=== PATIENT | male | born 1965 | race Caucasian/White ===

== ENCOUNTER → 2016-10-13 | Outpatient (CLI) | payer OTHER ==
[~2016-10-13] MED LIST: GABA-282 PO; MOBI15TA PO; PERC5TAB12 PO
--- NOTE | 2016-10-14 16:49 | HPE ---
DATE OF ADMISSION: 10/18/2016 CHIEF COMPLAINT: Neck pain, pain radiating down his right upper extremity. HISTORY: This is a pleasant 51-year-old male patient with ongoing neck pain and pain radiating to his right arm since around December of last year. There is no particular injury. Most of it was thought to be related to his shoulder. He underwent his shoulder surgery but continued to have pain down his right arm. He ultimately had an MRI of his cervical spine notable for a right paracentral disc bulge 6-7 with significant foraminal stenosis at 6-7 to the right side up. He also had degenerative changes at 3-4. He has failed to improve with conservative management. He has elected for surgery for his continued symptoms. He has consented for an anterior cervical decompression and at C6-[address] Eli. ALLERGIES: ASPIRIN CURRENT MEDICATIONS: - gabapentin 300 mg one tablet twice a day - Mobic 15 mg MEDICAL HISTORY: 1. Neck pain, pain radiating to his right upper extremity. 2. Cervical degenerative disc disease. 3. Cervical spinal stenosis. PAST SURGICAL HISTORY: Right shoulder scope. FAMILY HISTORY: Noncontributory. SOCIAL HISTORY: Does not smoke. Occasionally uses alcohol. He is currently a PA in the . REVIEW OF SYSTEMS: Denies fevers or fevers or chills. Denies chest pain, shortness breath, or cough. Denies difficulty breathing. Denies abdominal pain. Denies nausea or vomiting. Has persistent pain down his right upper extremity. Denies changes in bowel or bladder habits. Denies nausea or vomiting. PHYSICAL EXAMINATION: Today reveals a well-nourished, well-developed, alert male patient who walks with normal gait. Gait is not wide based. His neck is supple without adenopathy or jugular venous distention (JVD). Cifuentes's and clonus are negative. Deep tendon reflexes are 1 at the biceps, trace at the triceps, trace at the brachial radialis. Spurling's is negative. Lungs are clear to auscultation without rales or wheeze. Heart: Regular rate and rhythm. Abdomen: Bowel sounds are present. Current Vital signs: Height 6 feet, weight 190 pounds, temperature 96.6, blood pressure 110/70, pulse 65, respirations 18. LABORATORY DATA: None completed. IMPRESSION: Cervical degenerative disc disease and cervical spinal stenosis, right upper extremity radiculopathy. PLAN: He has consented for an anterior cervical decompression and fusion, C6-7, by Dr. Eli.
== END ==
LOC: M LAB 14:38
PROVIDERS: ATTEND Orthopaedic Surgery
DX: Z01.818 Encounter for other preprocedural examination (principal); M43.22 Fusion of spine, cervical region

== ENCOUNTER 2016-10-18 07:30 | Inpatient (IN) | payer OTHER ==
[~2016-10-18] VITALS: Ht 182.9 cm; Wt 86.2 kg
[~2016-10-18 07:30] MED LIST changes: -PERC5TAB12 PO
[2016-10-18] MEDS ORDERED: LR 1,000 ML IV ONE (08:45)
[2016-10-18] MEDS ORDERED: GABAPENTIN 300 MG CAP PO ONE (08:45)
[2016-10-18] MEDS ORDERED: PERCOCET 5MG/325MG TAB PO ONE (08:45)
[2016-10-18] MEDS ORDERED: ROCURONIUM BROMIDE 50 MG/5 ML VIAL/SYRINGE As Ordered ONE ×2 (08:47→12:07)
[2016-10-18] MEDS ORDERED: PROPOFOL 200 MG/20 ML VIAL As Ordered ONE (08:47)
[2016-10-18] MEDS ORDERED: LIDOCAINE 2% INJ 100 MG/5 ML SDV (FOR ANES.) As Ordered ONE (08:47)
[2016-10-18] MEDS ORDERED: dexameTHASONE 4 MG/ML 1ML VIAL (J1100) As Ordered ONE (08:47)
[2016-10-18] MEDS ORDERED: fentaNYL 250 MCG/5 ML INJECTION (J3010) As Ordered ONE (08:48)
[2016-10-18] MEDS ORDERED: MIDAZOLAM INJ 2 MG/2 ML VIAL (J2250) As Ordered ONE ×2 (08:48→10:37)
[2016-10-18] MEDS ORDERED: CelecoXIB (CeleBREX) 100 MG CAP PO ONE (09:15)
[2016-10-18] MEDS ORDERED: SEVOFLURANE INHAL SOLN 250 ML BTL As Ordered ONE (09:24)
[2016-10-18] MEDS ORDERED: BACITRACIN PWD 50,000 UNITS VIAL As Ordered ONE (10:20)
[2016-10-18] MEDS ORDERED: THROMBIN SOLN 20,000 UNITS KIT As Ordered ONE (10:20)
[2016-10-18] MEDS ORDERED: methylPREDNISolone 500 MG VIAL (J2930) As Ordered ONE (10:20)
[2016-10-18] MEDS ORDERED: LIDOCAINE W/EPINEPHRINE 1% 20ML VIAL As Ordered ONE (10:20)
[2016-10-18] MEDS ORDERED: ceFAZolin 2 GM/D5W 50 ML IV BAG (J0690) As Ordered ONE (10:44)
[2016-10-18] MEDS ORDERED: ePHEDrine SULFATE 25 MG/5 ML(5MG/ML) SYRINGE As Ordered ONE (11:38)
[2016-10-18] MEDS ORDERED: GLYCOPYRROLATE INJ 0.2 MG/ML 2 ML VIAL As Ordered ONE (12:13)
[2016-10-18] MEDS ORDERED: NEOSTIGMINE 1MG/ML 5 ML SYRINGE (J2710) As Ordered ONE (12:13)
[2016-10-18] MEDS ORDERED: HYDROmorphone HCL 2 MG/ML 1ML VIAL (J1170) As Ordered ONE (12:13)
[2016-10-18] MEDS ORDERED: HYDROmorphone HCL 1 MG/ML SYRINGE (J1170) As Ordered ONE (13:58)
[2016-10-18] MEDS: HYDROmorphone HCL 1 MG/ML SYRINGE (J1170) IV PRN ×3 (14:00→14:10)
[2016-10-18] MEDS ORDERED: PERCOCET 5MG/325MG TAB PO PRN ×2 (14:15)
[2016-10-18] MEDS ORDERED: CYCLOBENZAPRINE 10 MG TAB PO PRN (14:15)
[2016-10-18] MEDS ORDERED: fentaNYL 100 MCG/2 ML INJECTION (J3010) IV PRN (14:15)
[2016-10-18] MEDS ORDERED: ACETAMINOPHEN TAB 650MG DOSE (2X325MG) PO PRN (14:15)
[2016-10-18] MEDS ORDERED: LR 1,000 ML IV SCH (14:15)
[2016-10-18] MEDS ORDERED: MEPERIDINE INJ 25 MG/ML VIAL (J2175) IV PRN (14:15)
[2016-10-18] MEDS ORDERED: ONDANSETRON 4MG/2ML VIAL (J2405) IV PRN (14:15)
[2016-10-18] MEDS ORDERED: HYDROmorphone HCL 1 MG/ML SYRINGE (J1170) IV PRN ×2 (14:15)
[2016-10-18] MEDS ORDERED: METOCLOPRAMIDE INJ 10MG/2ML VIAL (J2765) IV PRN (14:15)
[2016-10-18 14:35] VITALS: BP 129/85
[2016-10-18] MEDS: D5W/LR 1,000 ML IV SCH (14:35)
--- NOTE | 2016-10-18 14:48 | REP ---
LIMITED CERVICAL SPINE: 10/18/2016. Clinical history: Herniated disc. Two cross-table intraoperative images were obtained. Initial image at 12:27 p.m. shows a probe at the C6-7 level. Endotracheal tube is evident. Disc space height and vertebral body height intact. There are some small posterior osteophytes at C5-6 and C6-7. The second image shows the disc spacer with plate and screw fixation anteriorly at this level with two screws in place at each level. Signed by Nathan Brothers MD 10/18/2016 07:05 P
[2016-10-18 15:00] VITALS: BP 122/80
[2016-10-18 15:30] VITALS: BP 123/82
[2016-10-18] MEDS: MOM 30ML SUSPENSION UDC PO SCH (16:17)
[2016-10-18] MEDS: PERCOCET 5MG/325MG TAB PO PRN ×2 (16:18→21:21)
[2016-10-18 16:30] VITALS: BP 134/75
[2016-10-18 17:30] VITALS: BP 124/76
[2016-10-18] MEDS ORDERED: ONDANSETRON 4 MG TAB (S0181) PO PRN (17:45)
[2016-10-18 20:00] VITALS: BP 123/73
[2016-10-18] MEDS: GABAPENTIN 300 MG CAP PO SCH (21:20)
[2016-10-18] MEDS: DOCUSATE SODIUM 100 MG CAP PO SCH (21:20)
[2016-10-19] VITALS: BP 135/78
[2016-10-19] MEDS: D5W/LR 1,000 ML IV SCH (00:15)
[2016-10-19] MEDS: PERCOCET 5MG/325MG TAB PO PRN ×3 (01:19→11:46)
[2016-10-19 04:00] VITALS: BP 111/59
[2016-10-19 08:00] VITALS: BP 115/72
[2016-10-19] MEDS ORDERED: PERC5TAB12 PO (08:11)
[2016-10-19] MEDS: GABAPENTIN 300 MG CAP PO SCH (08:47)
[2016-10-19] MEDS: MOM 30ML SUSPENSION UDC PO SCH (08:47)
[2016-10-19] MEDS: DOCUSATE SODIUM 100 MG CAP PO SCH (08:47)
[2016-10-19 12:00] VITALS: BP 140/78
[2016-10-19 12:16] VITALS: BP 140/78
--- NOTE | 2016-10-24 07:29 | RO ---
DATE OF PROCEDURE: 10/18/2016 PREOPERATIVE DIAGNOSIS: Right C6-7 herniated nucleus pulposus/right upper extremity radiculopathy. POSTOPERATIVE DIAGNOSIS: Right C6-7 herniated nucleus pulposus/right upper extremity radiculopathy. PROCEDURE PERFORMED: Anterior cervical decompression and fusion procedure at C6-7 specifically including discectomy C6-7, decompression of thecal sac and nerve roots, endplate preparation, arthrodesis at C6-7, application of structural allograft for spine surgery at C6-7 and application of anterior cervical instrumentation at C6-7. SURGEON: Dr. Collin Eli. MASTER AUTOMOTIVE TECHNICIAN: Apolinar Arias PADAM ANESTHESIA: General. SPECIMENS: Include disc material. ESTIMATED BLOOD LOSS: Less than 100 mL replaced with crystalloid. DRAINS: None. COMPLICATIONS: None. COMPONENTS USED: Included DePuy [place] 14 mm cervical plate, 15 mm screws times four, a 6 x 8 mm VG2 structural allograft. INDICATIONS: This is a 51-year-old gentleman with months of discomfort radiating down the right upper extremity and reported weakness in the right upper extremity and a C7 distribution. The patient has elected for operative intervention. Consent reviewed in detail with the patient including valentino discussion of the pathology involved, the procedure proposed, alternatives including doing nothing and risks, including not limited to pain, failure, infection, bleeding blood loss, incomplete relief of symptoms, need for additional surgery, adjacent level changes, nerve injury, swallowing trouble, hoarseness and other issues. The patient agreed to proceed with surgery. DESCRIPTION OF OPERATION: Identified in the holding area, site side verified, brought to the operating room sterilely prepped, draped in the usual fashion for exposure of the cervical spine. This was right side of the anterior approach. 7 pounds head halter traction applied. Shoulders taped gently at the side. Once I and the email marketing intern were comfortable with the positioning, we began the procedure. Time-out was accomplished. Next, I stood on the patient's right side using 3.5 loupe magnification and a headlamp. Ashly Branhamjulio c on the patient's left side in the capacity of assistant. Next, the line of the incision was based on bony landmarks, outlined with marking pen, infiltrated with 1% lidocaine with epinephrine. Incision was made with a 10-blade knife developed down through skin and subcuticular tissues to the platysma. Platysma was divided perpendicular to its fibers using bipolar cautery and tenotomy scissors. Sternocleidomastoid was appreciated. Omohyoid was appreciated. The omohyoid was elevated and divided using the bipolar cautery and tenotomy scissor. Next, dissection continued medial to the carotid sheath, which was identified and protected down to the prevertebral fascia. The prevertebral fascia was elevated at the disc osteophyte complex appreciated at C6-7. Mr. Arias utilized S retractors to assist with the exposure. A bayonet spinal needle was placed at the C6-7 disc space level and a cross-table lateral x-ray was taken to verify our position. Next the hot knife was utilized to elevate the medial border of the longus coli and distraction pins were placed at C6 and C7 and the shadow line retractor was utilized to expose the C6-7 disc annulus. The annulus was opened with the 11 blade. Disc material was removed. The cartilaginous endplate removed using curettes. The dissection continued down to the posterior longitudinal ligament. I utilized the oval bur to implement squaring of the endplates including debridement of the uncinate processes. A bone graft was retained for use as autograft from the uncinate processes. Next, I elevated the posterior longitudinal ligament with a #4-0 Prolene curette and then I removed posterior longitudinal ligament using #2 Kerrison. Foraminotomy, including of the right, was accomplished. The significantly decompressed the thecal sac and the exiting nerve roots including the foraminotomy on the right. Next, rasps were utilized to further contour the endplates to prepare for bone graft. Size 6 x 8 sound was utilized and seemed to fit appropriately. Next, irrigation was accomplished, 6 x 8 VG2 bone graft was obtained. The bur millings from the uncinate process were pressed into the graft and the graft was implanted at C6-7, tamped into place. Next, once this was accomplished, distraction pins were removed, holes were plugged with bone wax. Oval bur was utilized to debride the anterior vertebral column at C6-7 removing osteophyte for plate placement. 14 mm plate was then aligned and 15 mm screws were drilled at C6 and C7. The plate was locked into place. Final cross-table lateral x-ray was taken to verify plate and graft placement. Irrigation was accomplished. Wound was inspected for bleeding. No active bleeding was appreciated. Next, wound was irrigated with concentrated bacitracin. Retractors move all removed. Platysma was closed with interrupted stitch as well as deep dermis, Dermabond is on skin, cervical collar was then applied. Patient extubated, moved to hospital bed moved to recovery room in good condition. The patient was appreciated in the recovery room to be moving all four extremities. For further details please refer to medical record. Please note that Mr. Arias participated in the entirety case in the capacity of assistant. I was also present for the entirety of the case.
--- NOTE | 2016-10-24 09:03 | RO ---
DATE OF PROCEDURE: 10/18/2016 PREPROCEDURE DIAGNOSIS: Right upper extremity radiculopathy secondary to disc osteophyte complex at C6-7. POSTOPERATIVE DIAGNOSIS: Right upper extremity radiculopathy secondary to disc osteophyte complex at C6-7. PROCEDURE PERFORMED: Anterior cervical decompression and fusion procedure at C7, including decompression of the thecal sac and exiting nerve root, endplate preparation, application of structural allograft for spine surgery, harvest and placement of local autograft for spine surgery, application of anterior cervical instrumentation C6-7 plate. SURGEON: Collin Eli MD SPACE PLANNER: Apolinar Arias PA-C ANESTHESIA: General. ESTIMATED BLOOD LOSS: Less than 50 mL. COMPLICATIONS: None. INDICATIONS: Right upper extremity radicular pain going on for a period of more than 1 year. MRI evidence of disc bulge at C6-7 on the right. Consent reviewed in detail with the patient, including valentino discussion of the pathology involved, the procedure proposed, alternatives, including doing nothing, risks, including, but not limited to pain, failure, infection, bleeding blood loss, incomplete relief of symptoms, need for additional surgery, swallowing trouble, hoarseness, nerve injury and other issues. The patient agrees to proceed. COMPONENTS USED: Included DePuy Triumph plate system 15 mm plate, 15 mm screws times four, and DG2 structural allograft for spine surgery. OPERATIVE COURSE: Identified in the holding area, site and side verified, brought to the operating room. General endotracheal anesthesia was administered. Shoulders taped to the side. Head halter traction 7 pounds applied. Once I and the riveter were comfortable with the patient's positioning, he was sterilely prepped and draped in the usual fashion for a right-sided approach to the anterior cervical spine. Next, Mr. rAias stood on the patient's left and on the patient's right. I utilized 3.5 loupe magnification. Incision was based on palpation of landmarks, it was two fingerbreadths long, infiltrated with 1% lidocaine with epinephrine, made with the 10 blade knife, developed down through skin and subcuticular tissues to the platysma. Platysma was then elevated and divided perpendicular to its fibers. Dissection continued identifying the omohyoid, which was also divided. The sternocleidomastoid was appreciated. The dissection continued identifying the carotid sheath, which was retracted laterally to the surface of the prevertebral fascia. The prevertebral fascia was elevated in several layers, exposing the C6-7 disc. The C6-7 disc osteophyte complex with palpable. Next, I placed a bayonet spinal needle at C6-7 and we obtained a cross-table lateral x-ray for localization, which confirmed our level. Next, a hot knife was utilized to elevate the longus coli muscle at its medial border and exposed the disc annulus circumferential at disc annulus superiorly and inferiorly. Next, we then placed distraction pins at C6 and C7 and then placed the shadow line retractor under the medial edge of the longus colli. Next, 11 blade was utilized to open the annulus and then disc material was removed with pituitaries. Endplate cartilage was removed using curved curettes. Next, I then utilized the oval bur to contour endplates to prepare the fusion. Uncinate processes were hypertrophic and they were taken down with the oval bur and bur millings were collected and retained for bone graft, autograft to be pushed into the graft. Next, posterior longitudinal ligament was identified, elevated with #4-0 curved curette. Two Kerrisons were utilized to remove PLL, exposing the thecal sac. Foraminotomy was accomplished bilaterally but special attention was placed on the patient's right side. This was accomplished using #2 Kerrisons. Next, once this was accomplished, final contouring of the endplate was accomplished using the rasps, as well as the sizing device. We sized for a 6 x 8. Next, 6 x 8 graft was obtained. Irrigation was accomplished. Graft was morselized. Autograft was pushed into the structural graft. The graft was implanted. Mr. Arias then removed the retractors, utilized S retractors to help expose the anterior vertebral column. I used the oval bur to contour the anterior osteophytes to receive the plate. I then selected the 15 mm Triumph plate and secured it by drilling and placing 15 mm screws times four in the vertebral bodies of C6 and C7. The plate was locked. Next, irrigation was again accomplished. We inspected for bleeding. We instilled 10 mL of concentrated bacitracin solution. Next, at this stage, a cross-table lateral was obtained to verify plate placement.. Next, platysma was reapproximated with interrupted stitch, dermis was reapproximated with interrupted stitch. Dermabond utilized on skin. [place] rigid cervical collar was placed to immobilize the neck. The patient was able to be at extubated and moved to the recovery room in good condition. For further details, please refer to the medical record. Please note, Mr. Arias was present and participated in the entirety of the case in the capacity of administration assistant, which included retraction and assistance in placing retractor blades and exposing tissues.
--- NOTE | 2016-10-27 09:10 | DSES ---
DATE OF ADMISSION: 10/18/2016 DATE OF DISCHARGE: 10/19/2016 ATTENDING PHYSICIAN: Dr. Collin Eli. ADMITTING DIAGNOSIS: Right upper extremity radiculopathy secondary to disc osteophyte complex at C6-7. DISCHARGE DIAGNOSIS: Right upper extremity radiculopathy secondary to disc osteophyte complex at C6-7 status post anterior cervical decompression and fusion. HISTORY: Patient is a 51-year-old male who has been experiencing right upper extremity pain and weakness in the C7 nerve distribution for approximately 10 months. He failed to respond with conservative measures so elected for an anterior cervical decompression and fusion at C6-[address] Eli. OPERATION PERFORMED: Anterior cervical decompression and fusion procedure at C6-7 specifically including discectomy at C6-7, decompression of the thecal sac and nerve roots, end plate preparation, arthrodesis at 6-7, application of a structural allograft for spinal surgery at C6-7 and application of an anterior cervical instrumentation at C6-7. HOSPITAL COURSE: Patient underwent an anterior cervical decompression and fusion at C6-7 under spinal anesthesia. Surgery was uneventful and hospital course was without complication. Patient was discharged on oral pain medications. He will resume his preoperative medications and diet. He was instructed to use his cervical collar and thromboembolic deterrent stockings (TEDS). He will followup in our office in approximately 3 days or sooner if there is any increase in symptoms. He is encouraged to contact our office if there is any increased pain , bleeding, drainage, fevers greater than 101 degrees, numbness, tingling or weakness in his extremities, or for any other concerns. Please see medical record for additional details. FAMILIA
== END 2016-10-19 12:25 | disposition home or self-care (01) | DRG 473 ==
LOC: EDSTATUS 07:30 → M OR 08:35 → M PED 15:21
PROVIDERS: ADMIT Orthopaedic Surgery; ATTEND Orthopaedic Surgery
PROC: 0PB30ZZ Excision of Cervical Vertebra, Open Approach (ICD-10-PCS; 2016-10-18)
PROC: 00NW0ZZ Release Cervical Spinal Cord, Open Approach (ICD-10-PCS; 2016-10-18)
PROC: 0RG20A0 Fusion of 2 or more Cervical Vertebral Joints with Interbody Fusion Device, Anterior Approach, Anterior Column, Open Approach (ICD-10-PCS; principal; 2016-10-18 10:35)
DX: M50.123 Cervical disc disorder at C6-C7 level with radiculopathy (principal); Z79.899 Other long term (current) drug therapy; Z91.041 Radiographic dye allergy status; Z91.013 Allergy to seafood

== ENCOUNTER → 2018-04-09 | Outpatient (CLI) | payer OTHER ==
[~2018-04-09] MED LIST changes: -GABA-282 PO; +GABA-843 PO; +PERC5TAB12 PO; +PROHANCE 279.3MG/ML 15ML VIAL (A9576) As Ordered ONE; +PROHANCE 279.3MG/ML 5ML VIAL (A9576) As Ordered ONE
--- NOTE | 2018-04-09 14:34 | REP ---
MR BRAIN WITHOUT AND WITH CONTRAST: HISTORY: Bilateral sensory neural hearing loss. CONTRAST: ProHance 2.2 mL There are no areas of abnormal signal intensity in the brain. There is no intraparenchymal hemorrhage infarct, mass, or midline shift. There is no abnormal enhancement. The ventricular system is normal in appearance. A mayelin cisterna magna is present. There is no extracerebral collection. There is no cerebellopontine angle mass . The inner ear structures are normal in appearance. The mastoid air cells are clear. Mucosal thickening is present in the left maxillary and ethmoid sinuses. IMPRESSION: There is no intracranial lesion. Electronically Signed by Celestino Wetzel MD 04/09/2018 02:36 P
== END ==
LOC: M RAD 13:05
PROVIDERS: ATTEND Otolaryngology
DX: H90.3 Sensorineural hearing loss, bilateral (principal)
CPT/HCPCS: 70553; A9576

== ENCOUNTER → 2018-06-18 | Outpatient (REF) | payer OTHER ==
[~2018-06-18] MED LIST changes: -PROHANCE 279.3MG/ML 15ML VIAL (A9576) As Ordered ONE; -PROHANCE 279.3MG/ML 5ML VIAL (A9576) As Ordered ONE
== END ==
LOC: M LAB LCGH 15:19
PROVIDERS: ATTEND Surgery
DX: Z00.00 Encounter for general adult medical examination without abnormal findings (principal)